=== PATIENT | male | born 1940 | race Caucasian/White ===

== ENCOUNTER 2018-08-24 07:43 | Outpatient (CLI) | payer MEDICARE ==
--- NOTE | 2018-08-24 08:57 | RAD ---
TWO VIEWS CHEST: Date: 08-24-18 Provided Clinical History: Cough. FINDINGS: Comparison is made with the study dated 11-09-02. Cardiac and mediastinal silhouette is within normal limits. Right subclavian cardiac pacing device wi th lead tips overlying the expected locations of RA and RV noted. Median sternotomy changes and ather osclerosis are seen. The lungs are hyperinflated and hyperlucent, compatible with chronic obstructive disease. There is no definite focal consolidation, pleural fluid, or pneumothorax apparent. IMPRESSION: Chronic obstructive disease without evidence for an acute cardiopulmonary process. POS: OFF
--- NOTE | 2018-08-24 09:12 | ULT ---
ABDOMINAL ULTRASOUND: History Abdominal pain, times a few months. The patient has a history of smoking. COMPARISON: None. TECHNIQUE: Utilizing a multihertz transducer, sonographic imaging of the abdomen is performed in the longitudina l and transverse plane. FINDINGS: Atherosclerotic aorta is noted. Suboptimal evaluation of the pancreas due to bowel gas. Visualized inferior vena cava is unremarkable. Hepatic parenchyma has a normal echotexture. No hepatic masses or intrahepatic biliary dilatation. The contour of the hepatic margin is maintained. Suboptimal evaluation of the common bile duct. No sonographic evidence of cholelithiasis or pericholecystic fluid. Gallbladder wall thickening is a t the upper limits of normal. Community Relations Director reports a positive Archer's sign. The spleen measures 8.7 cm in maximum dimension. There is increased echogenicity of the left renal cortex. No hydronephrosis. The left kidney measur es 4.3 x 4.7 x 10.9 cm. The right kidney has a normal cortical echotexture. No hydronephrosis. The right kidney measures 5.7 x 3.7 x 9.6 cm. IMPRESSION: 1. No sonographic evidence of cholelithiasis or definite evidence of cholecystitis. However, the po ssibility of acalculus cholecystitis cannot be completely excluded given gallbladder wall thickening that is at the upper limits of normal and a positive Archer's sign. Further evaluation with HIDA sca n is recommended. 2. Increased echogenicities of the left kidney, nonspecific. Correlate clinically for medical renal disease. POS: [facility]
== END 2018-08-24 07:44 | disposition home or self-care (01) ==
LOC: MADULT 07:43
PROVIDERS: ATTEND Family Medicine
DX: Z13.6 Encounter for screening for cardiovascular disorders (principal); J44.0 Chronic obstructive pulmonary disease with (acute) lower respiratory infection; R10.9 Unspecified abdominal pain
CPT/HCPCS: 71046; 76700